=== PATIENT | female | born 1960 | race Caucasian/White ===

== ENCOUNTER 2024-03-28 14:22 | Emergency (ER) | payer MEDICARE ==
[~2024-03-28] VITALS: Ht 160 cm; Wt 54.4 kg
[2024-03-28] MEDS ORDERED: OMEP-173 PO (14:37)
[2024-03-28] MEDS ORDERED: D 50CAP3 PO (14:37)
[2024-03-28] MEDS ORDERED: METO25TA4 PO (14:37)
[2024-03-28] MEDS ORDERED: OMEGCAP4 PO (14:37)
[2024-03-28] MEDS ORDERED: AMOX875T PO (14:37)
[2024-03-28] MEDS: dexAMETHasone 20MG/5ML VIAL IV ONE (17:16)
[2024-03-28] MEDS: AMPICILLIN SOD/SULBACTAM SOD 3 GM in D5W MINI-BAG PLUS 100 ML IV ONE (17:17)
[2024-03-28 17:34] LABS: BASO % 0.3 % (0.0-1.0); EOS # 0.1 10^3/uL (0.0-0.5); EOS % 0.5 % (0.0-3.0); HEMATOCRIT 43.6 % (36.0-47.0); LYMPH # 2.4 10^3/uL (1.5-5.0); LYMPH % 20.5 % (24.0-44.0); MEAN CORPUSCULAR HEMOGLOBIN 34.8 pg (27.0-33.0); MEAN CORPUSCULAR HGB CONC 34.4 g/dl (32.0-36.5); MEAN CORPUSCULAR VOLUME 101.2 fl (80.0-96.0); MONO # 0.9 10^3/uL (0.0-0.8); MONO % 7.6 % (2.0-8.0); NEUTROPHILS # 8.3 10^3/uL (1.5-8.5); NEUTROPHILS % 70.8 % (36.0-66.0); PLATELET COUNT, AUTOMATED 316 10^3/uL (150-450); RED BLOOD COUNT 4.31 10^6/uL (4.00-5.40); WHITE BLOOD COUNT 11.8 10^3/uL (4.0-10.0)
[2024-03-28 17:49] LABS: ERYTHROCYTE SEDIMENTATION RATE 30 mm/hr (0-30)
[2024-03-28] MEDS: ACETAMINOPHEN *IV* 1,000 MG in IV 1 EA IV ONE (17:55)
[2024-03-28] MEDS: ONDANSETRON 4MG 2ML VIAL IV ONE (22:31)
[2024-03-28] MEDS: MORPHINE 2 MG/ML 1ML VIAL IV ONE (22:31)
[2024-03-29] MEDS: MORPHINE 2 MG/ML 1ML VIAL IV ONE ×2 (01:55→06:55)
[2024-03-29 07:49] VITALS: BP 159/71; TEMP 97.3; O2SAT 97
== END 2024-03-29 07:52 | disposition short-term general hospital (02) ==
LOC: M ED 14:22
DX: M27.2 Inflammatory conditions of jaws (principal); I10 Essential (primary) hypertension; K21.9 Gastro-esophageal reflux disease without esophagitis; F17.200 Nicotine dependence, unspecified, uncomplicated; Z79.2 Long term (current) use of antibiotics; Z79.899 Other long term (current) drug therapy; Z88.2 Allergy status to sulfonamides; Z88.8 Allergy status to other drugs, medicaments and biological substances
CPT/HCPCS: 70491; 80047; 85025; 85652; 86140; 96374; 96375; 96376; 99284; J0131; J0295; J1100; J2405